=== PATIENT | female | born 1950 | race Caucasian/White ===

== ENCOUNTER 2019-06-17 20:09 | Inpatient (IN) | payer MEDICARE, MEDICAID ==
[~2019-06-17] VITALS: Ht 152.4 cm; Wt 63.0 kg
[~2019-06-17 20:09] MED LIST: AMLO10TA80 PO
[2019-06-17 21:36] LABS: BASOPHILS % 0.5 % (0.0-2.0); EOSINOPHILS % 0.4 % (0.0-5.0); HEMATOCRIT. 32.2 % (36.0-48.0); HEMOGLOBIN. 11.2 g/dL (12.0-16.0); MEAN CORPUSCULAR HEMOGLOBIN 34.1 pg (28.0-32.0); MEAN CORPUSCULAR VOLUME 98.3 fL (81.0-99.0); MEAN PLATELET VOLUME 8.9 fl (7.4-10.4); MONOCYTES % 10.3 % (2.0-8.0); NEUTROPHILS % 66.8 % (40.0-76.0); PLATELET 69 x1000/uL (130-400); RED BLOOD CELL COUNT 3.28 mill/uL (4.2-5.4); RED CELL DISTRIBUTION WIDTH 15.3 % (11.6-14.6)
[2019-06-17 21:40] LABS: CHLORIDE 114 mEq/L (98-107)
[2019-06-17 21:42] LABS: INR 1.1; PROTHROMBIN TIME 11.4 sec (9.6-11.0)
[2019-06-17] MEDS ORDERED: DOCUSATE SODIUM 100MG CAPSULE PO PRN (22:15)
[2019-06-17] MEDS ORDERED: HYDROCODONE/ACETAMINOPHEN 10/325MG TABLET PO PRN (22:15)
[2019-06-17] MEDS ORDERED: MAGNESIUM/ALUMINUM HYDROXIDE/SIMETHICONE 30ML UDC PO PRN (22:15)
[2019-06-17] MEDS ORDERED: ONDANSETRON HCL 4MG/2ML INJ IV PRN (22:15)
[2019-06-17] MEDS ORDERED: CLONIDINE 0.1MG TABLET PO PRN (22:15)
[2019-06-17] MEDS ORDERED: DIPHENHYDRAMINE 50MG/ML VIAL IV PRN (22:15)
[2019-06-17] MEDS ORDERED: IPRATROPIUM/ALBUTEROL 0.5-3(2.5)MG/3ML NEB HHN PRN (22:15)
[2019-06-17] MEDS ORDERED: LORAZEPAM 0.5MG TABLET PO PRN (22:15)
[2019-06-17] MEDS ORDERED: GUAIFENESIN 200MG/10ML SUGAR FREE UDC PO PRN (22:15)
[2019-06-18] VITALS (7 sets, daily range): BP systolic 128–155; BP diastolic 62–74
[2019-06-18] MEDS ORDERED: FURO20TA4 PO (01:30)
[2019-06-18] MEDS ORDERED: ZOLP5TAB2 PO (01:33)
[2019-06-18 06:21] LABS: BASOPHILS % 0.6 % (0.0-2.0); EOSINOPHILS % 0.7 % (0.0-5.0); HEMATOCRIT. 30.5 % (36.0-48.0); HEMOGLOBIN. 10.3 g/dL (12.0-16.0); LYMPHOCYTES % 27.3 % (20.0-50.0); MEAN CORPUSCULAR HEMOGLOBIN 33.4 pg (28.0-32.0); MEAN CORPUSCULAR VOLUME 98.2 fL (81.0-99.0); MEAN PLATELET VOLUME 9.4 fl (7.4-10.4); MONOCYTES % 14.2 % (2.0-8.0); NEUTROPHILS % 57.2 % (40.0-76.0); PLATELET 58 x1000/uL (130-400); RED CELL DISTRIBUTION WIDTH 15.5 % (11.6-14.6)
[2019-06-18 06:25] LABS: CHLORIDE 117 mEq/L (98-107)
[2019-06-18 06:31] LABS: PHOSPHORUS 2.9 mg/dL (2.5-4.9)
[2019-06-18 06:32] LABS: LDL CHOLESTEROL 55 mg/dL (5-100)
[2019-06-18 06:33] LABS: HDL CHOLESTEROL 59 mg/dL (40-59); T4 FREE 1.17 ng/dL (0.76-1.46)
[2019-06-18] MEDS ORDERED: PNEUMOCOCCAL 23-VAL P-SAC VAC 0.5 ML IM ONE (08:00)
[2019-06-18] MEDS: FUROSEMIDE 20MG TABLET PO SCH (11:23)
[2019-06-18] MEDS: AMLODIPINE 10MG TABLET PO SCH (11:23)
[2019-06-18 17:44] LABS: CARCINO EMBRYONIC ANTIGEN 3.9 ng/ml
[2019-06-18 17:55] LABS: HEPATITIS B SURFACE ANTIGEN NEGATIVE
[2019-06-18 18:25] LABS: HEPATITIS A AB IGM NEGATIVE (NEGATIVE)
[2019-06-18] MEDS: ACETAMINOPHEN 325MG TABLET PO PRN (19:18)
[2019-06-18] MEDS: ZOLPIDEM TARTRATE 5MG TABLET PO SCH (22:32)
[2019-06-19] VITALS (7 sets, daily range): BP systolic 116–145; BP diastolic 51–77
[2019-06-19 08:03] LABS: BASOPHILS % 0.4 % (0.0-2.0); EOSINOPHILS % 0.6 % (0.0-5.0); HEMATOCRIT. 29.9 % (36.0-48.0); HEMOGLOBIN. 10.4 g/dL (12.0-16.0); LYMPHOCYTES % 28.1 % (20.0-50.0); MEAN CORPUSCULAR HEMOGLOBIN 34.1 pg (28.0-32.0); MEAN CORPUSCULAR VOLUME 97.9 fL (81.0-99.0); MEAN PLATELET VOLUME 9.8 fl (7.4-10.4); MONOCYTES % 11.1 % (2.0-8.0); NEUTROPHILS % 59.8 % (40.0-76.0); PLATELET 63 x1000/uL (130-400); RED BLOOD CELL COUNT 3.05 mill/uL (4.2-5.4); RED CELL DISTRIBUTION WIDTH 15.1 % (11.6-14.6)
[2019-06-19 08:04] LABS: CHLORIDE 114 mEq/L (98-107)
[2019-06-19] MEDS ORDERED: LIDOCAINE HCL 1% 20ML VIAL (Pyxis) INJ ONE (08:10)
[2019-06-19] MEDS ORDERED: SODIUM BICARBONATE 4% (2.4MEQ) 5ML VIAL IV ONE (08:10)
[2019-06-19 08:13] LABS: PHOSPHORUS 3.1 mg/dL (2.5-4.9)
[2019-06-19 08:18] LABS: FOLIC ACID (FOLATE) SERUM 19.8 ng/mL (>5.38)
[2019-06-19] MEDS: AMLODIPINE 10MG TABLET PO SCH (09:00)
[2019-06-19] MEDS: FUROSEMIDE 20MG TABLET PO SCH (09:00)
[2019-06-19] MEDS: HYDROCODONE/ACETAMINOPHEN 5/325MG TABLET PO PRN ×2 (10:32→18:18)
[2019-06-19] MEDS: ACETAMINOPHEN 325MG TABLET PO PRN ×2 (13:03→21:36)
[2019-06-19] MEDS: LACTULOSE 20G/30ML UDC PO SCH ×2 (13:03→22:00)
[2019-06-19] MEDS ORDERED: MAGNESIUM 1 G PREMIX 100 ML IV SCH (14:00)
[2019-06-19] MEDS: ZOLPIDEM TARTRATE 5MG TABLET PO SCH (21:36)
[2019-06-20] VITALS: BP 132/52
[2019-06-20 04:00] VITALS: BP 126/56
[2019-06-20 06:18] LABS: CHLORIDE 116 mEq/L (98-107)
[2019-06-20 06:43] LABS: BASOPHILS % 0.7 % (0.0-2.0); EOSINOPHILS % 1.4 % (0.0-5.0); HEMATOCRIT. 28.9 % (36.0-48.0); HEMOGLOBIN. 10.4 g/dL (12.0-16.0); LYMPHOCYTES % 33.2 % (20.0-50.0); MEAN CORPUSCULAR VOLUME 97.2 fL (81.0-99.0); MEAN PLATELET VOLUME 9.6 fl (7.4-10.4); MONOCYTES % 12.4 % (2.0-8.0); NEUTROPHILS % 52.3 % (40.0-76.0); PLATELET 55 x1000/uL (130-400); RED BLOOD CELL COUNT 2.97 mill/uL (4.2-5.4); RED CELL DISTRIBUTION WIDTH 15.1 % (11.6-14.6)
[2019-06-20 08:00] VITALS: BP 133/62
[2019-06-20] MEDS: FUROSEMIDE 20MG TABLET PO SCH (08:24)
[2019-06-20] MEDS: AMLODIPINE 10MG TABLET PO SCH (08:24)
[2019-06-20 12:09] VITALS: BP 118/55
[2019-06-20 13:06] LABS: HIV SCREEN 4G Non Reactive (Non Reactive)
[2019-06-20] MEDS: LACTULOSE 20G/30ML UDC PO SCH ×2 (13:20→21:11)
[2019-06-20 16:00] VITALS: BP 126/60
[2019-06-20 20:00] VITALS: BP 139/67
[2019-06-20] MEDS: ACETAMINOPHEN 325MG TABLET PO PRN (21:12)
[2019-06-20] MEDS: ZOLPIDEM TARTRATE 5MG TABLET PO SCH (21:18)
[2019-06-21] VITALS (7 sets, daily range): BP systolic 105–139; BP diastolic 53–65
[2019-06-21] MEDS: LACTULOSE 20G/30ML UDC PO SCH ×2 (06:12→15:32)
[2019-06-21 07:37] LABS: BASOPHILS % 0.7 % (0.0-2.0); EOSINOPHILS % 1.3 % (0.0-5.0); HEMATOCRIT. 35.2 % (36.0-48.0); HEMOGLOBIN. 12.1 g/dL (12.0-16.0); LYMPHOCYTES % 28.6 % (20.0-50.0); MEAN CORPUSCULAR HEMOGLOBIN 33.6 pg (28.0-32.0); MEAN PLATELET VOLUME 9.5 fl (7.4-10.4); MONOCYTES % 9.9 % (2.0-8.0); NEUTROPHILS % 59.5 % (40.0-76.0); PLATELET 69 x1000/uL (130-400); RED BLOOD CELL COUNT 3.59 mill/uL (4.2-5.4); RED CELL DISTRIBUTION WIDTH 15.3 % (11.6-14.6)
[2019-06-21 07:44] LABS: CHLORIDE 111 mEq/L (98-107)
[2019-06-21] MEDS: FUROSEMIDE 20MG TABLET PO SCH (08:58)
[2019-06-21] MEDS: AMLODIPINE 10MG TABLET PO SCH (08:59)
[2019-06-21] MEDS: ACETAMINOPHEN 325MG TABLET PO PRN (19:09)
[2019-06-22 08:10] LABS: CA 19-9 14 U/mL (0-35); CANCER ANTIGEN 125 530.6 U/mL (0.0-38.1)
== END 2019-06-21 22:03 | disposition home health service (06) | DRG 432 ==
LOC: ER 20:09 → EDBEDREQTM 22:16 → EDBEDREQ 22:16 → 5WST 06-18 01:04
PROVIDERS: ADMIT Family Medicine Adult Medicine; ATTEND Family Medicine Adult Medicine
PROC: 0W9G3ZZ Drainage of Peritoneal Cavity, Percutaneous Approach (ICD-10-PCS; principal; 2019-06-19)
PROC: 0W993ZZ Drainage of Right Pleural Cavity, Percutaneous Approach (ICD-10-PCS; 2019-06-19)
DX: K74.60 Unspecified cirrhosis of liver (principal); J96.00 Acute respiratory failure, unspecified whether with hypoxia or hypercapnia; E43 Unspecified severe protein-calorie malnutrition; R18.8 Other ascites; T79.A3XA Traumatic compartment syndrome of abdomen, initial encounter; K76.6 Portal hypertension; D61.818 Other pancytopenia; J91.8 Pleural effusion in other conditions classified elsewhere; R16.1 Splenomegaly, not elsewhere classified; K80.20 Calculus of gallbladder without cholecystitis without obstruction; D64.9 Anemia, unspecified; K72.90 Hepatic failure, unspecified without coma; X58.XXXA Exposure to other specified factors, initial encounter; I10 Essential (primary) hypertension; K59.00 Constipation, unspecified; E83.42 Hypomagnesemia; Z85.038 Personal history of other malignant neoplasm of large intestine; Z82.49 Family history of ischemic heart disease and other diseases of the circulatory system; Z88.0 Allergy status to penicillin; Z91.041 Radiographic dye allergy status; Z68.27 Body mass index [BMI] 27.0-27.9, adult
CPT/HCPCS: 32555; 36415; 49083; 71045; 74176; 80048; 80061; 80076; 82040; 82105; 82140; 82150; 82378; 82607; 82746; 83036; 83615; 83735; 83880; 84100; 84439; 84443; 84484; 86301; 86304; 86705; 86709; 86803; 87340; 87389; 88108; 88312; 90732; 93005; 93306; 93970; 96372; 97162; 99285; J3475; J3490

== ENCOUNTER 2020-08-17 10:42 | Inpatient (IN) | payer MEDICARE, MEDICAID ==
[~2020-08-17] VITALS: Ht 215.9 cm; Wt 66.3 kg
[~2020-08-17 10:42] MED LIST changes: +FERR325T23 PO; +FURO20TA4 PO; +LIDO700A30 TOP; +SPIR50TA5 MT; +TRAM50TA3 MT; +ZOLP5TAB2 PO
[2020-08-17 12:06] LABS: BASOPHILS % 0.6 % (0.0-2.0); EOSINOPHILS % 1.4 % (0.0-5.0); HEMATOCRIT. 27.1 % (36.0-48.0); HEMOGLOBIN. 9.2 g/dL (12.0-16.0); MEAN CORPUSCULAR VOLUME 91.6 fL (81.0-99.0); MEAN PLATELET VOLUME 9.8 fl (7.4-10.4); MONOCYTES % 11.4 % (2.0-8.0); NEUTROPHILS % 60.6 % (40.0-76.0); PLATELET 57 x1000/uL (130-400); RED BLOOD CELL COUNT 2.95 mill/uL (4.2-5.4); RED CELL DISTRIBUTION WIDTH 14.6 % (11.6-14.6)
[2020-08-17 12:15] LABS: CHLORIDE 115 mEq/L (98-107)
[2020-08-17 12:19] LABS: ETHANOL BLOOD < 10 mg/dL
[2020-08-17 12:22] LABS: LDL CHOLESTEROL 60 mg/dL (5-100)
[2020-08-17] MEDS ORDERED: LEVOFLOXACIN 750MG PREMIX 150 ML IV NR (12:38)
[2020-08-17 12:39] LABS: INR 1.2
[2020-08-17 13:11] LABS: CLARITY URINE CLEAR (CLEAR); COLOR URINE YELLOW (YELLOW); KETONES URINE NEGATIVE (NEGATIVE); LEUKOCYTE ESTERASE URINE TRACE (NEGATIVE); NITRITE URINE NEGATIVE (NEGATIVE); OCCULT BLOOD URINE NEGATIVE (NEGATIVE); PH URINE 7.5 (4.5-8.0); PROTEIN URINE NEGATIVE (NEGATIVE); SPECIFIC GRAVITY URINE 1.014 (1.005-1.030)
[2020-08-17 13:34] LABS: *AMPHETAMINES SCREEN URINE NEGATIVE (NEGATIVE); *BARBITURATES SCREEN URINE NEGATIVE (NEGATIVE); *BENZODIAZEPINES SCREEN URINE NEGATIVE (NEGATIVE); *COCAINE SCREEN URINE NEGATIVE (NEGATIVE); CANNABINOID URINE SCREEN NEGATIVE (NEGATIVE); METHADONE URINE SCREEN NEGATIVE (NEGATIVE); OPIATES URINE SCREEN NEGATIVE (NEGATIVE)
[2020-08-17 13:35] LABS: PHENCYCLIDINE URINE SCREEN NEGATIVE (NEGATIVE)
[2020-08-17] MEDS ORDERED: ASPIRIN 300MG SUPP PR SCH (14:00)
[2020-08-18] MEDS ORDERED: ONDANSETRON HCL 4MG/2ML INJ IV PRN (11:30)
[2020-08-18] MEDS: LIDOCAINE 5% PATCH TOP SCH (11:30)
[2020-08-18] MEDS ORDERED: ACETAMINOPHEN 325MG TABLET PO PRN (11:30)
[2020-08-18] MEDS ORDERED: TRAMADOL 50MG TABLET PO PRN (11:30)
[2020-08-18] MEDS ORDERED: LEVOFLOXACIN 500MG PREMIX 100 ML IV NR (11:39)
[2020-08-18] MEDS: FERROUS SULFATE 325MG TABLET PO SCH ×2 (13:46→17:31)
[2020-08-18] MEDS: FUROSEMIDE 20MG TABLET PO SCH (13:46)
[2020-08-18] MEDS: SPIRONOLACTONE 50MG TABLET PO SCH (13:46)
[2020-08-18] MEDS: AZTREONAM 1 G in DEXTROSE 5% WATER 50 ML IV SCH (17:31)
[2020-08-18] MEDS ORDERED: TRAZODONE HCL 50MG TABLET PO PRN (21:00)
[2020-08-18] MEDS ORDERED: HEPARIN 5000 UNITS/ML VIAL SUBCUT SCH (21:00)
[2020-08-18] MEDS: ZOLPIDEM TARTRATE 5MG TABLET PO SCH (21:37)
[2020-08-19] VITALS (10 sets, daily range): BP systolic 118–142; BP diastolic 46–70
[2020-08-19] MEDS: AZTREONAM 1 G in DEXTROSE 5% WATER 50 ML IV SCH ×4 (03:01→23:21)
[2020-08-19] MEDS ORDERED: INFLUENZA VACCINE 05/PF 0.5 ML VIAL IM ONE (06:00)
[2020-08-19 07:36] LABS: BASOPHILS % 0.4 % (0.0-2.0); EOSINOPHILS % 3.7 % (0.0-5.0); HEMATOCRIT. 25.5 % (36.0-48.0); HEMOGLOBIN. 8.7 g/dL (12.0-16.0); MEAN CORPUSCULAR HEMOGLOBIN 30.8 pg (28.0-32.0); MEAN CORPUSCULAR VOLUME 90.5 fL (81.0-99.0); MEAN PLATELET VOLUME 10.1 fl (7.4-10.4); MONOCYTES % 13.3 % (2.0-8.0); NEUTROPHILS % 53.6 % (40.0-76.0); PLATELET 51 x1000/uL (130-400); RED BLOOD CELL COUNT 2.81 mill/uL (4.2-5.4); RED CELL DISTRIBUTION WIDTH 14.4 % (11.6-14.6)
[2020-08-19 07:42] LABS: CHLORIDE 113 mEq/L (98-107)
[2020-08-19] MEDS: LIDOCAINE 5% PATCH TOP SCH (09:00)
[2020-08-19] MEDS: SPIRONOLACTONE 50MG TABLET PO SCH (09:09)
[2020-08-19] MEDS: LACTULOSE 20G/30ML UDC PO SCH ×2 (09:10→21:00)
[2020-08-19] MEDS: FERROUS SULFATE 325MG TABLET PO SCH ×3 (09:10→18:02)
[2020-08-19] MEDS: AMLODIPINE 10MG TABLET PO SCH (09:11)
[2020-08-19] MEDS: ASPIRIN 81MG EC TABLET PO SCH (09:11)
[2020-08-19] MEDS: FUROSEMIDE 20MG TABLET PO SCH (09:11)
[2020-08-19] MEDS ORDERED: LACTULOSE 20G/30ML UDC PO SCH (12:15)
[2020-08-19] MEDS: ZOLPIDEM TARTRATE 5MG TABLET PO SCH (21:32)
[2020-08-20] VITALS (9 sets, daily range): BP systolic 104–136; BP diastolic 50–65
[2020-08-20] MEDS: FERROUS SULFATE 325MG TABLET PO SCH ×2 (06:34→14:51)
[2020-08-20] MEDS: AZTREONAM 1 G in DEXTROSE 5% WATER 50 ML IV SCH (06:34)
[2020-08-20] MEDS: LIDOCAINE 5% PATCH TOP SCH (07:56)
[2020-08-20] MEDS: AMLODIPINE 10MG TABLET PO SCH (07:56)
[2020-08-20] MEDS: FUROSEMIDE 20MG TABLET PO SCH (07:56)
[2020-08-20] MEDS: ASPIRIN 81MG EC TABLET PO SCH (07:56)
[2020-08-20] MEDS: SPIRONOLACTONE 50MG TABLET PO SCH (07:56)
[2020-08-20] MEDS: LACTULOSE 20G/30ML UDC PO SCH (07:56)
[2020-08-20] MEDS ORDERED: LACTULOSE 20G/30ML UDC PO SCH (08:00)
[2020-08-20 08:38] LABS: BASOPHILS % 0.5 % (0.0-2.0); HEMATOCRIT. 26.9 % (36.0-48.0); HEMOGLOBIN. 9.3 g/dL (12.0-16.0); LYMPHOCYTES % 32.4 % (20.0-50.0); MEAN CORPUSCULAR HEMOGLOBIN 31.1 pg (28.0-32.0); MEAN CORPUSCULAR VOLUME 90.4 fL (81.0-99.0); NEUTROPHILS % 51.1 % (40.0-76.0); PLATELET 57 x1000/uL (130-400); RED BLOOD CELL COUNT 2.97 mill/uL (4.2-5.4); RED CELL DISTRIBUTION WIDTH 14.1 % (11.6-14.6)
[2020-08-20 08:41] LABS: CHLORIDE 111 mEq/L (98-107)
[2020-08-20] MEDS ORDERED: LACT10SO7 PO (13:36)
[2020-08-20] MEDS ORDERED: NITR100C MT (13:37)
[2020-08-20] MEDS ORDERED: DIPH25CA83 MT (14:13)
[2020-08-20] MEDS ORDERED: NITROFURANTOIN 100MG M/M CAPSULE PO NR (14:15)
[2020-08-20] MEDS ORDERED: DIPHENHYDRAMINE 50MG/ML VIAL IV NR (14:15)
== END 2020-08-20 17:15 | disposition home health service (06) | DRG 871 ==
LOC: ER 11:02 → EDBEDREQ 14:20 → EDBEDREQTM 14:20 → ENRESERV 18:26 → CANRESERV 18:26 → ENRESERV 08-18 21:46 → 3WST 08-19 01:19
PROVIDERS: ADMIT Internal Medicine; ATTEND Internal Medicine
DX: A41.51 Sepsis due to Escherichia coli [E. coli] (principal); G92 Toxic encephalopathy; J18.9 Pneumonia, unspecified organism; D61.818 Other pancytopenia; E44.0 Moderate protein-calorie malnutrition; I50.32 Chronic diastolic (congestive) heart failure; N39.0 Urinary tract infection, site not specified; Z16.24 Resistance to multiple antibiotics; Z68.1 Body mass index [BMI] 19.9 or less, adult; B96.20 Unspecified Escherichia coli [E. coli] as the cause of diseases classified elsewhere; D63.8 Anemia in other chronic diseases classified elsewhere; H54.61 Unqualified visual loss, right eye, normal vision left eye; I11.0 Hypertensive heart disease with heart failure; I25.10 Atherosclerotic heart disease of native coronary artery without angina pectoris; G31.9 Degenerative disease of nervous system, unspecified; I45.81 Long QT syndrome; J45.909 Unspecified asthma, uncomplicated; K74.60 Unspecified cirrhosis of liver; M13.0 Polyarthritis, unspecified; Z20.828 Contact with and (suspected) exposure to other viral communicable diseases; Z79.899 Other long term (current) drug therapy; Z88.0 Allergy status to penicillin; Z91.041 Radiographic dye allergy status; I69.30 Unspecified sequelae of cerebral infarction
CPT/HCPCS: 36415; 70551; 71045; 80053; 80305; 80320; 81003; 82140; 82962; 83605; 83721; 83735; 83880; 84145; 84484; 85025; 87077; 87186; 90686; 92610; 93005; 93306; 97162; 99291; C9803; J1200; J1956; J3490; J7060; U0003; G0480

== ENCOUNTER 2020-09-03 03:21 | Emergency (ER) | payer MEDICARE, MEDICAID ==
[~2020-09-03] VITALS: Ht 157.5 cm; Wt 59.0 kg
[~2020-09-03 03:21] MED LIST changes: +DIPH25CA83 MT; +LACT10SO7 PO; +NITR100C MT
[2020-09-03 08:13] LABS: BASOPHILS % 0.3 % (0.0-2.0); HEMATOCRIT. 30.4 % (36.0-48.0); LYMPHOCYTES % 17.6 % (20.0-50.0); MEAN CORPUSCULAR HEMOGLOBIN 30.1 pg (28.0-32.0); MEAN CORPUSCULAR VOLUME 91.1 fL (81.0-99.0); MEAN PLATELET VOLUME 10.3 fl (7.4-10.4); MONOCYTES % 6.5 % (2.0-8.0); NEUTROPHILS % 75.6 % (40.0-76.0); RED BLOOD CELL COUNT 3.34 mill/uL (4.2-5.4); RED CELL DISTRIBUTION WIDTH 15.2 % (11.6-14.6)
[2020-09-03 08:15] LABS: INR 1.2; PROTHROMBIN TIME 12.1 sec (9.6-11.0)
[2020-09-03 08:21] LABS: PLATELET 35 x1000/uL (130-400)
[2020-09-03 08:24] LABS: CHLORIDE 108 mEq/L (98-107)
[2020-09-03 09:06] LABS: PLATELET ESTIMATE MARKEDLY DECREASED
[2020-09-03 09:39] LABS: CLARITY URINE CLEAR (CLEAR); COLOR URINE YELLOW (YELLOW); KETONES URINE 1+ (NEGATIVE); LEUKOCYTE ESTERASE URINE TRACE (NEGATIVE); NITRITE URINE NEGATIVE (NEGATIVE); OCCULT BLOOD URINE NEGATIVE (NEGATIVE); PROTEIN URINE 2+ (NEGATIVE); SPECIFIC GRAVITY URINE 1.021 (1.005-1.030)
[2020-09-03 10:55] VITALS: BP 145/60
[2020-09-03] MEDS ORDERED: AZITHROMYCIN 500 MG TABLET PO ONE (13:00)
== END 2020-09-03 14:42 | disposition home or self-care (01) ==
LOC: ER 03:21
DX: J18.9 Pneumonia, unspecified organism (principal); D69.6 Thrombocytopenia, unspecified; R53.1 Weakness; E72.20 Disorder of urea cycle metabolism, unspecified; I10 Essential (primary) hypertension; Z86.73 Personal history of transient ischemic attack (TIA), and cerebral infarction without residual deficits; Z79.899 Other long term (current) drug therapy; Z88.0 Allergy status to penicillin
CPT/HCPCS: 36415; 71045; 80053; 81003; 82140; 85025; 99284